=== PATIENT | male | born 1950 | race Caucasian/White ===

== ENCOUNTER → 2020-05-12 | Outpatient (CLI) | payer MEDICARE | END | disposition home or self-care (01) | LOC: PETCFH 07:22 | PROVIDERS: ATTEND Pathology Hematology | DX: C67.8 Malignant neoplasm of overlapping sites of bladder (principal); I25.10 Atherosclerotic heart disease of native coronary artery without angina pectoris; I71.9 Aortic aneurysm of unspecified site, without rupture; N13.30 Unspecified hydronephrosis; N13.4 Hydroureter; R19.09 Other intra-abdominal and pelvic swelling, mass and lump; Z98.1 Arthrodesis status; N32.89 Other specified disorders of bladder | CPT/HCPCS: 78815; A9552 ==